=== PATIENT | female | born 1965 | race Two or more races ===

== ENCOUNTER 2019-07-19 13:09 | Emergency (ER) | payer OTHER ==
[~2019-07-19] VITALS: Ht 160 cm; Wt 92.5 kg
[2019-07-19] MEDS ORDERED: COZAAR25 MG PO (13:50)
[2019-07-19] MEDS ORDERED: SYNTHROID112 MCG PO (13:50)
[2019-07-19] MEDS ORDERED: CRESTOR5 MG PO (13:51)
== END 2019-07-19 19:47 | disposition home or self-care (01) ==
LOC: ER 13:09
DX: K57.92 Diverticulitis of intestine, part unspecified, without perforation or abscess without bleeding (principal)

== ENCOUNTER 2019-07-23 11:08 | Emergency (ER) | payer OTHER ==
[~2019-07-23] VITALS: Ht 160 cm; Wt 89.8 kg
[~2019-07-23 11:08] MED LIST: COZAAR25 MG PO; CRESTOR5 MG PO; SYNTHROID112 MCG PO
[2019-07-23] MEDS ORDERED: FLAGYL500MG PO (11:26)
[2019-07-23] MEDS ORDERED: AMOX1TAB5 (11:27)
== END 2019-07-23 15:42 | disposition home or self-care (01) ==
LOC: ER 11:08
DX: K52.9 Noninfective gastroenteritis and colitis, unspecified (principal)

== ENCOUNTER 2022-04-13 08:02 | Outpatient (CLI) | payer OTHER ==
[~2022-04-13 08:02] MED LIST changes: +AMOX1TAB5; +FLAGYL500MG PO
== END 2022-04-13 13:16 | disposition home or self-care (01) ==
LOC: TOM 08:02
PROVIDERS: ATTEND Internal Medicine Gastroenterology
DX: R10.30 Lower abdominal pain, unspecified (principal)

== ENCOUNTER 2023-09-08 09:16 | Emergency (ER) | payer OTHER ==
[~2023-09-08] VITALS: Ht 160 cm; Wt 93.9 kg
[2023-09-08 11:18] LABS: HEMATOCRIT 37.8 % (36.0-45.00); HEMOGLOBIN 12.7 g/dL (12.0-15.00); MEAN CELL VOLUME 84.4 fL (80.00-100.00); MEAN CORPUSCULAR HEMOGLOBIN 28.3 pg (27.00-32.0); MEAN CORPUSCULAR HGB CONC 33.6 g/dl (32.0-36.0); PLATELET COUNT 267 K/uL (150-450); RED BLOOD COUNT 4.48 M/uL (4.00-6.00); RED CELL DISTRIBUTION WIDTH 13.5 % (11.5-14.5)
[2023-09-08 11:37] LABS: URINE APPEARANCE Clear; URINE BILIRRUBIN Negative (NEGATIVE); URINE BLOOD Trace; URINE COLOR Yellow; URINE GLUCOSE Negative (NEGATIVE); URINE LEUKOCYTE Negative; URINE NITRATE Negative; URINE PROTEIN Negative (NEGATIVE)
[2023-09-08 11:40] LABS: URINE EPITHELIAL CELLS 3.2 uL (0.0-38.8); URINE RBC 3.5 uL (0.0-20.8)
[2023-09-08 11:43] LABS: CALCIUM 9.4 mg/dL (8.5-10.1); CREATININE SERUM 0.72 mg/dL (0.55-1.02); GFR 83.2; POTASSIUM 3.89 mEq/L (3.5-5.1)
[2023-09-08] MEDS ORDERED: LEVSIN/SL0.125 MG SL (18:14)
[2023-09-08] MEDS ORDERED: PEPCID AC20 MG PO (18:14)
[2023-09-08] MEDS ORDERED: METRONIDAZOLE500 MG PO (18:14)
[2023-09-08] MEDS ORDERED: AMOX-CLAV 875-1 EACH PO (18:14)
== END 2023-09-08 18:28 | disposition home or self-care (01) ==
LOC: ER 09:17
PROVIDERS: Emergency Medicine
DX: K57.32 Diverticulitis of large intestine without perforation or abscess without bleeding (principal); K44.9 Diaphragmatic hernia without obstruction or gangrene; I10 Essential (primary) hypertension; E03.9 Hypothyroidism, unspecified; Z88.8 Allergy status to other drugs, medicaments and biological substances